=== PATIENT | male | born 1950 | race Caucasian/White ===

== ENCOUNTER 2016-06-16 07:44 | Outpatient (CLI) | payer MEDICARE ==
[2016-06-16 08:46] LABS: ALT (SGPT) 18 U/L (0-55); AST (SGOT) 18 U/L (5-34); Alkaline Phosphatase 68 U/L (40-150); Anion Gap 14 mmol/L (10-20); BUN (Urea Nitrogen) 27 mg/dL (8.4-25.7); Bilirubin, Total 0.6 mg/dL (0.2-1.2); Calc. Creatinine Clearance 0 mL/min (70-130); Calcium 9.4 mg/dL (7.8-10.44); Carbon Dioxide 22 mmol/L (23-31); Chloride 109 mmol/L (98-107); Estimated GFR-MDRD 48; Globulin 2.9 g/dL (2.4-3.5); LDL Cholesterol, Calculated 36 mg/dL; Protein, Total 6.9 g/dL (5.8-8.1)
[2016-06-16 09:03] LABS: #Basophils 0.1 thou/uL (0.0-0.2); #Eosinphils 0.7 thou/uL (0.0-0.7); #Lymphocytes 2.1 thou/uL (1.20-3.40); #Monocytes 0.7 thou/uL (0.11-0.59); #Neutrophils 4.9 thou/uL (1.40-6.50); %Basophils 0.9 % (0.0-1.0); %Eosinophils 8.6 % (0.0-10.0); %Monocytes 8.1 % (0.0-10.0); Hematocrit 42.7 % (42.0-52.0); Mean Platelet Volume 6.8 fL (7.4-10.4); Red Blood Cell (RBC) Count 4.71 mill/uL (4.70-6.10); White Blood Cell (WBC) Count 8.6 thou/uL (4.8-10.8)
[2016-06-16 09:17] LABS: Hemoglobin A1c 6.2 % (4.0-6.0)
== END 2016-06-16 07:45 | disposition home or self-care (01) ==
LOC: BURLAB 07:44
PROVIDERS: ATTEND Family Medicine
DX: Z11.59 Encounter for screening for other viral diseases (principal); E78.5 Hyperlipidemia, unspecified; E11.9 Type 2 diabetes mellitus without complications; I10 Essential (primary) hypertension; R73.09 Other abnormal glucose
CPT/HCPCS: 36415; 80053; 80061; 83036; 85025; 86803

== ENCOUNTER 2016-09-07 20:14 | Emergency (ER) | payer MEDICARE ==
[2016-09-07] MEDS ORDERED: Bacitracin Zinc 1 Packet ONE (20:32)
[2016-09-07] MEDS ORDERED: Adacel (T-DAP) 0.5 ML VIAL ONE (20:55)
== END 2016-09-07 21:11 | disposition home or self-care (01) ==
LOC: BURERS 20:14
DX: S61.012A Laceration without foreign body of left thumb without damage to nail, initial encounter (principal); I10 Essential (primary) hypertension; E11.9 Type 2 diabetes mellitus without complications; Z23 Encounter for immunization; Z79.84 Long term (current) use of oral hypoglycemic drugs; Z79.4 Long term (current) use of insulin; Z79.899 Other long term (current) drug therapy; W27.8XXA Contact with other nonpowered hand tool, initial encounter
CPT/HCPCS: 90471; 90715; J2001

== ENCOUNTER 2016-10-04 11:20 | Outpatient (CLI) | payer MEDICARE | END 2016-10-04 11:21 | disposition home or self-care (01) | LOC: LABLEX 11:20 | PROVIDERS: ATTEND Family Medicine | DX: N28.9 Disorder of kidney and ureter, unspecified (principal) | CPT/HCPCS: 82565 ==

== ENCOUNTER 2017-03-03 15:12 | Emergency (ER) | payer MEDICARE, OTHER ==
[2017-03-03] MEDS ORDERED: Ketorolac Tromethamine 30 MG/ML VIAL ONE (16:08)
[2017-03-03 16:17] LABS: ALT (SGPT) 33 U/L (8-55); AST (SGOT) 42 U/L (5-34); Albumin 3.4 g/dL (3.4-4.8); Alkaline Phosphatase 158 U/L (40-150); Anion Gap 16 mmol/L (10-20); BUN (Urea Nitrogen) 28 mg/dL (8.4-25.7); Bilirubin, Total 1.1 mg/dL (0.2-1.2); Calc. Creatinine Clearance 0 mL/min (70-130); Calcium 9.2 mg/dL (7.8-10.44); Carbon Dioxide 18 mmol/L (23-31); Chloride 100 mmol/L (98-107); Estimated GFR-MDRD 37; Globulin 3.4 g/dL (2.4-3.5); Glucose 294 mg/dL (80-115); Potassium 4.3 mmol/L (3.5-5.1); Protein, Total 6.8 g/dL (5.8-8.1); Sodium 130 mmol/L (136-145)
[2017-03-03 16:20] LABS: #Lymphocytes 0.5 thou/uL (1.20-3.40); #Monocytes 0.5 thou/uL (0.11-0.59); #Neutrophils 5.7 thou/uL (1.40-6.50); %Basophils 0.7 % (0.0-1.0); %Eosinophils 0.1 % (0.0-10.0); %Lymphocytes 7.1 % (21.0-51.0); %Monocytes 7.5 % (0.0-10.0); %Neutrophils 84.6 % (42.0-75.0); Hemoglobin 14.1 g/dL (14.0-18.0); Mean Corpuscular HGB CONC 34.7 g/dL (32.0-36.0); Mean Corpuscular Hemoglobin 31.7 pg (27.0-31.0); Mean Corpuscular Volume 91.3 fl (80.0-94.0); Mean Platelet Volume 7.3 fL (7.4-10.4); PLT Morphology Comment BLOOD SMEAR CONFIRMS PLT COUNT; Platelet Count 105 thou/uL (130-400); RBC Distribution Width 11.2 % (11.5-14.5); Red Blood Cell (RBC) Count 4.46 mill/uL (4.70-6.10); White Blood Cell (WBC) Count 6.7 thou/uL (4.8-10.8)
[2017-03-03] MEDS ORDERED: Ondansetron HCl/PF 4 MG/2 ML Vial ONE (16:21)
[2017-03-03 16:27] LABS: MDiff Complete? YES
[2017-03-03 17:56] LABS: Bilirubin Small (Negative); Blood, Urine Moderate (Negative); Clarity Slightly Cloudy (Clear); Glucose, Urine (Dipstick) 100 mg/dL (Negative); Leukocyte Negative (Negative); Nitrite Negative (Negative); Protein, Urine (Dipstick) 100 mg/dL (Neg-Trace); Specific Gravity, Urine 1.015 (1.005-1.030); Urobilinogen 0.2 mg/dL (0.2-1.0); pH, Urine 5.5 (5.0-9.0)
[2017-03-03 17:59] LABS: Bacteria/HPF 1+ HPF (None Seen); Crystals/HPF None Seen HPF (Negative); Hyaline Casts/LPF NONE SEEN LPF (0-3 Hyaline); Oval Fat Bodies/HPF None Seen HPF (None Seen); RBC/HPF 0-3 HPF (0-3); Renal Epithelial None Seen HPF (0-3); Sperm/HPF None Seen HPF (None Seen); Transitional Epithelial NONE SEEN HPF (0-3); Trichomonas/HPF None Seen HPF (None Seen); WBC/HPF 0-3 HPF (0-3); Yeast-All Forms None Seen HPF (None Seen)
[2017-03-03 18:00] LABS: Other Casts/LPF 0-3 COARSE GRAN LPF (0-3 Hyaline)
--- NOTE | 2017-03-03 22:08 | CT ---
CT OF THE ABDOMEN AND PELVIS WITHOUT CONTRAST 03/03/17 Comparison is made with a prior CT dated 03/14/14. The scan was done without oral or IV contrast. Axial slices were acquired, then coronal and sagittal reconstructions were done. There is a prior history of small bowel obstruction. The lung bases are clear. The liver, spleen, pancreas, adrenal glands and abdominal aorta showed no a cute findings within the limitations of a noncontrast study. There has been a prior cholecystectomy. Numerous renal cysts are seen bilaterally. The largest measures 4.5 cm in the left kidney and has enl arged over time. There is a tiny nonobstructing calculus seen in the left kidney. There is a consider able amount of perinephric stranding present. This was true before, though it is somewhat increased t dominic. Significance is unknown and sometimes can relate to pyelonephritis. Regarding the GI tract, Th ere are a few nondilated loops of distal small bowel that have fluid in them. There is no bowel diste ntion of any type. No inflammatory changes are seen around bowel and no bowel wall thickening was maria ines reciated. There is, however, a left inguinal hernia that contains bowel. Previously, it only containe d fat. It currently is not causing any sort of obstruction. Also noted is a small herniation of the r ight anterior abdominal wall at the margin of the rectus muscle in the right lower quadrant. It was p resent before and is about the same. It only has fat within it. IMPRESSION: 1. No evidence of bowel obstruction on today's study. 2. Left inguinal hernia with bowel in it. Previously, this only had fat. 3. Bilateral renal cysts, some being larger than before. Significant bilateral perinephric stran ding which is somewhat worse than it was previously. The finding is nonspecific. Nonobstructing left renal calculus as before. 4. Small right anterior abdominal wall hernia with fat in it, unchanged. 5. Some fluid filled loops of distal small bowel but none are dilated. This finding is nonspecif ic. POS: HOME
== END 2017-03-03 18:06 | disposition home or self-care (01) ==
LOC: BURERS 15:12
DX: N20.0 Calculus of kidney (principal); R09.02 Hypoxemia; E11.9 Type 2 diabetes mellitus without complications; I10 Essential (primary) hypertension; Z79.4 Long term (current) use of insulin; Z86.73 Personal history of transient ischemic attack (TIA), and cerebral infarction without residual deficits
CPT/HCPCS: 74176; 80053; 81003; 81015; 83605; 85025; 87040; 87077; 87086; 87149; 87186; 94640; 94760; 96361; 96374; 96375; J1885; J2405; J7620

== ENCOUNTER 2017-05-13 21:30 | Emergency (ER) | payer MEDICARE, OTHER | END 2017-05-13 21:44 | disposition left against medical advice (07) | LOC: BURERS 21:30 | DX: R06.02 Shortness of breath (principal); E11.9 Type 2 diabetes mellitus without complications; I10 Essential (primary) hypertension; Z79.84 Long term (current) use of oral hypoglycemic drugs; Z79.899 Other long term (current) drug therapy | CPT/HCPCS: 99283 ==

== ENCOUNTER 2017-06-27 07:16 | Emergency (ER) | payer MEDICARE, OTHER ==
[2017-06-27 08:09] LABS: #Basophils 0.1 thou/uL (0.0-0.2); #Eosinphils 0.4 thou/uL (0.0-0.7); #Lymphocytes 1.7 thou/uL (1.20-3.40); #Monocytes 0.5 thou/uL (0.11-0.59); #Neutrophils 3.1 thou/uL (1.40-6.50); %Basophils 1.3 % (0.0-1.0); %Eosinophils 6.9 % (0.0-10.0); %Lymphocytes 29.8 % (21.0-51.0); %Monocytes 8.7 % (0.0-10.0); %Neutrophils 53.4 % (42.0-75.0); Hemoglobin 12.5 g/dL (14.0-18.0); Mean Corpuscular HGB CONC 34.3 g/dL (32.0-36.0); Mean Corpuscular Hemoglobin 30.5 pg (27.0-31.0); Mean Platelet Volume 9.9 fL (7.4-10.4); Platelet Count 157 thou/uL (130-400); RBC Distribution Width 13.7 % (11.5-14.5); White Blood Cell (WBC) Count 5.9 thou/uL (4.8-10.8)
--- NOTE | 2017-06-27 08:16 | RAD ---
PORTABLE CHEST ONE VIEW: Date: 06-27-17 Time: 7:38 a.m. History: Pulmonary edema. FINDINGS/IMPRESSION: The heart size is borderline. There is pulmonary vascular congestion with bilateral small pleural eff usions, left greater than right. There is atelectasis versus infiltrate in the left lung base. No pne umothoraces are seen. POS: [facility]
[2017-06-27 08:22] LABS: PTT 29.2 SEC (22.9-36.1)
[2017-06-27 08:23] LABS: D-Dimer Test 2.4 *mcg/mL (0.27-0.43); INR-International Normal Ratio 1.2; Prothrombin Time 15.3 SEC (12.0-14.7)
[2017-06-27 08:27] LABS: ALT (SGPT) 10 U/L (8-55); AST (SGOT) 19 U/L (5-34); Albumin 3.6 g/dL (3.4-4.8); Alkaline Phosphatase 83 U/L (40-150); Anion Gap 17 mmol/L (10-20); BUN (Urea Nitrogen) 32 mg/dL (8.4-25.7); Bilirubin, Total 0.5 mg/dL (0.2-1.2); Calc. Creatinine Clearance 0 mL/min (70-130); Calcium 9.5 mg/dL (7.8-10.44); Carbon Dioxide 19 mmol/L (23-31); Chloride 108 mmol/L (98-107); Estimated GFR-MDRD 37; Globulin 3.1 g/dL (2.4-3.5); Glucose 118 mg/dL (80-115); Potassium 5.3 mmol/L (3.5-5.1); Protein, Total 6.7 g/dL (5.8-8.1); Sodium 139 mmol/L (136-145)
[2017-06-27 08:29] LABS: CKMB 3.3 ng/mL (0-6.6); Troponin I 0.103 ng/mL (< 0.028)
[2017-06-27] MEDS ORDERED: Furosemide 40 MG/4 ML VIAL ONE (08:48)
== END 2017-06-27 09:25 | disposition short-term general hospital (02) ==
LOC: BURERS 07:16
DX: I11.0 Hypertensive heart disease with heart failure (principal); I50.9 Heart failure, unspecified; E11.9 Type 2 diabetes mellitus without complications; Z86.73 Personal history of transient ischemic attack (TIA), and cerebral infarction without residual deficits; Z79.84 Long term (current) use of oral hypoglycemic drugs; Z79.82 Long term (current) use of aspirin; Z79.899 Other long term (current) drug therapy
CPT/HCPCS: 71045; 80053; 82553; 83880; 84484; 85025; 85379; 85610; 85730; 93005; 96374; J1940

== ENCOUNTER 2017-07-29 20:08 | Emergency (ER) | payer MEDICARE, OTHER ==
[2017-07-29] MEDS ORDERED: Ondansetron ODT 4 MG TAB ONE (20:30)
== END 2017-07-29 20:44 | disposition home or self-care (01) ==
LOC: BURERS 20:08
DX: R11.2 Nausea with vomiting, unspecified (principal); S09.90XD Unspecified injury of head, subsequent encounter; E11.9 Type 2 diabetes mellitus without complications; I10 Essential (primary) hypertension; Z86.73 Personal history of transient ischemic attack (TIA), and cerebral infarction without residual deficits; Z79.84 Long term (current) use of oral hypoglycemic drugs; Z79.82 Long term (current) use of aspirin; Z79.899 Other long term (current) drug therapy
CPT/HCPCS: 99283; Q0162

== ENCOUNTER 2018-05-15 11:50 | Outpatient (CLI) | payer MEDICARE, OTHER | END 2018-05-15 11:51 | disposition home or self-care (01) | LOC: BUREKG 11:50 | PROVIDERS: ATTEND Family Medicine | DX: Z01.818 Encounter for other preprocedural examination (principal); N40.0 Benign prostatic hyperplasia without lower urinary tract symptoms | CPT/HCPCS: 93005; 93010 ==

== ENCOUNTER 2019-04-11 16:40 | Outpatient (CLI) | payer MEDICARE, OTHER ==
--- NOTE | 2019-04-12 07:28 | RAD ---
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 There is postoperative campoverde ge involving the posterior aspect of the patella. There is a nonspecific knee joint effusion. There is vascular calcification posterior to the left knee. No acute fracture or dislocation. No evidence for hardware failure. IMPRESSION: No acute fracture or dislocation. Nonspecific knee joint effusion, which may be related t o degenerative change or an inflammatory/infectious process. Clinical correlation is essential.
== END 2019-04-11 16:41 | disposition home or self-care (01) ==
LOC: BURRAD 16:40
PROVIDERS: ATTEND Family Medicine
DX: Z47.1 Aftercare following joint replacement surgery (principal); Z96.652 Presence of left artificial knee joint; M25.462 Effusion, left knee